=== PATIENT | female | born 1985 | race Caucasian/White ===

== ENCOUNTER 2018-01-16 18:36 | Emergency (ER) | payer OTHER ==
[~2018-01-16] VITALS: Ht 162.6 cm; Wt 97.5 kg
[~2018-01-16 18:36] MED LIST: PREDNISONE 10 M10 MG PO; REGLAN 10 MG TA10 MG PO; TRAZODONE HCL100 MG PO
[2018-01-16 19:24] LABS: INFLUENZA A ANTIGEN None Detected (None Detect); INFLUENZA B ANTIGEN None Detected (None Detect)
[2018-01-16] MEDS ORDERED: AMOXICILLIN875 MG PO (19:37)
[2018-01-16] MEDS ORDERED: PROAIR HFA8.5 GM INH (19:39)
[2018-01-16 19:49] VITALS: BP 112/61
== END 2018-01-16 19:51 | disposition home or self-care (01) ==
LOC: M.ERS 18:36
PROVIDERS: Nurse Practitioner Family
DX: H66.92 Otitis media, unspecified, left ear (principal)

== ENCOUNTER 2018-05-31 14:49 | Emergency (ER) | payer OTHER ==
[~2018-05-31] VITALS: Ht 162.6 cm; Wt 108.9 kg
[~2018-05-31 14:49] MED LIST changes: +AMOXICILLIN875 MG PO; +PROAIR HFA8.5 GM INH
[2018-05-31 15:38] LABS: ABSOLUTE EOSINOPHILS 0.2 thou/uL (0.0-0.7); ABSOLUTE LYMPHOCYTES 1.8 thou/uL (0.8-5.3); ABSOLUTE MONOCYTES 0.5 thou/uL (0.0-1.2); ABSOLUTE NEUTROPHILS 4.1 thou/uL (1.6-8.1); BASOPHILS 0.5 %; EOSINOPHILS 3.3 %; HEMATOCRIT 41.9 % (37.0-47.0); HEMOGLOBIN 14.7 gm/dL (12.0-15.0); LYMPHOCYTES 26.8 %; MCH 31.7 pg (26.0-34.0); MCHC 35.1 g/dL (28.0-37.0); MCV 90.3 fL (80.0-100.0); MONOCYTES 7.1 %; MPV 8.5 fl. (7.2-11.1); NUCLEATED RBCS 0 /100WBC; PLATELET COUNT* 205 thou/uL (150-400); POLYS 62.3 %; RBC 4.64 mil/uL (4.20-5.00); RDW-CV 12.7 % (10.5-14.5); WBC 6.6 thou/uL (4.0-11.0)
[2018-05-31 15:45] LABS: CALCIUM 8.6 mg/dL (8.5-10.1); CREATININE 0.6 mg/dL (0.6-1.3); POTASSIUM 4.2 mmol/L (3.5-5.1)
[2018-05-31 15:49] LABS: ALBUMIN 3.4 g/dL (3.4-5.0); TOTAL BILIRUBIN 0.5 mg/dL (<0.1-1.0); TOTAL PROTEIN 7.3 g/dL (6.4-8.2)
[2018-05-31 16:37] LABS: URINE BILIRUBIN NEGATIVE (Negative); URINE BLOOD NEGATIVE (Negative); URINE CLARITY CLEAR; URINE COLOR YELLOW; URINE GLUCOSE-RANDOM 2+ (Negative); URINE KETONES NEGATIVE (Negative); URINE LEUKOCYTES-REFLEX NEGATIVE (Negative); URINE NITRITE-REFLEX NEGATIVE (Negative); URINE PROTEIN NEGATIVE (Negative); URINE UROBILINOGEN 0.2 E.U./dl (0.2-1.0)
[2018-05-31] MEDS ORDERED: CITRATE OF MAG296 ML PO (17:41)
[2018-05-31] MEDS ORDERED: METFORMIN HCL500 MG PO ×2 (17:49→17:50)
[2018-05-31 17:54] VITALS: BP 126/85
== END 2018-05-31 17:55 | disposition home or self-care (01) ==
LOC: M.ERS 14:49
PROVIDERS: Physician Assistant
DX: K76.0 Fatty (change of) liver, not elsewhere classified (principal); R73.9 Hyperglycemia, unspecified

== ENCOUNTER 2020-04-23 18:40 | Emergency (ER) | payer OTHER ==
[~2020-04-23] VITALS: Ht 162.6 cm; Wt 99.8 kg
[~2020-04-23 18:40] MED LIST changes: +CITRATE OF MAG296 ML PO; +METFORMIN HCL500 MG PO; +NORVASC5 MG PO
[2020-04-23] MEDS ORDERED: NORCO 5-325 TA1 EAC1 PO (19:13)
[2020-04-23] MEDS ORDERED: DOXYCYCLINE 10100 MG PO (19:13)
[2020-04-23 19:43] VITALS: BP 155/75
== END 2020-04-23 19:46 | disposition home or self-care (01) ==
LOC: M.ERS 18:40
DX: N76.4 Abscess of vulva (principal); E11.9 Type 2 diabetes mellitus without complications; F17.210 Nicotine dependence, cigarettes, uncomplicated; Z98.51 Tubal ligation status

== ENCOUNTER 2020-12-22 23:23 | Emergency (ER) | payer OTHER ==
[~2020-12-22] VITALS: Ht 162.6 cm; Wt 111.1 kg
[~2020-12-22 23:23] MED LIST changes: +DOXYCYCLINE 10100 MG PO; +NORCO 5-325 TA1 EAC1 PO
[2020-12-22] MEDS ORDERED: HUMULIN N100 UNIT/1 ×2 (23:40)
[2020-12-22] MEDS ORDERED: INSULIN LI100 UNIT/1 (23:41)
[2020-12-22] MEDS ORDERED: HUMALOG100 UNIT/1 SUBQ (23:42)
[2020-12-23 00:15] LABS: URINE BILIRUBIN NEGATIVE (Negative); URINE BLOOD NEGATIVE (Negative); URINE CLARITY CLEAR; URINE COLOR YELLOW; URINE GLUCOSE-RANDOM 3+ (Negative); URINE KETONES 2+ (Negative); URINE LEUKOCYTES-REFLEX NEGATIVE (Negative); URINE NITRITE-REFLEX NEGATIVE (Negative); URINE PROTEIN NEGATIVE (Negative); URINE SPECIFIC GRAVITY >= 1.030 (1.005-1.030); URINE UROBILINOGEN 0.2 E.U./dl (0.2-1.0)
[2020-12-23 00:40] VITALS: BP 127/80
== END 2020-12-23 00:42 | disposition home or self-care (01) ==
LOC: M.ERS 23:23
PROVIDERS: Personal Emergency Response Attendant
DX: O24.414 Gestational diabetes mellitus in pregnancy, insulin controlled (principal); Z79.4 Long term (current) use of insulin; Z3A.28 28 weeks gestation of pregnancy

== ENCOUNTER 2021-04-23 20:39 | Emergency (ER) | payer OTHER ==
[~2021-04-23] VITALS: Ht 162.6 cm; Wt 108.9 kg
[~2021-04-23 20:39] MED LIST changes: +HUMALOG100 UNIT/1 SUBQ; +HUMULIN N100 UNIT/1; +INSULIN LI100 UNIT/1
[2021-04-23] MEDS ORDERED: IBUPROFEN 800800 M1 PO (21:04)
[2021-04-23] MEDS ORDERED: BACTRIM DS TAB1 EACH PO (21:04)
[2021-04-23] MEDS ORDERED: NORCO5 PO (21:04)
[2021-04-23] MEDS ORDERED: CEPHALEXIN500 MG PO (21:04)
[2021-04-23 21:13] VITALS: BP 145/96
== END 2021-04-23 21:13 | disposition home or self-care (01) ==
LOC: M.ERS 20:39
DX: L03.032 Cellulitis of left toe (principal); E11.9 Type 2 diabetes mellitus without complications; I10 Essential (primary) hypertension; Z98.51 Tubal ligation status

== ENCOUNTER 2021-06-11 20:01 | Emergency (ER) | payer OTHER ==
[~2021-06-11] VITALS: Ht 162.6 cm; Wt 106.1 kg
[~2021-06-11 20:01] MED LIST changes: +BACTRIM DS TAB1 EACH PO; +CEPHALEXIN500 MG PO; +IBUPROFEN 800800 M1 PO; +NORCO5 PO
[2021-06-11] MEDS ORDERED: GABAPENTIN100 MG PO (20:19)
[2021-06-11] MEDS ORDERED: EZALLOR SPRINKLE5 MG PO (20:20)
[2021-06-11] MEDS ORDERED: LISINOPRIL5 MG PO (20:21)
[2021-06-11] MEDS ORDERED: [UNRECOGNIZED DRUG - OTHER] RECTAL (20:21)
[2021-06-11] MEDS ORDERED: OMEPRAZOLE40 MG PO (20:22)
[2021-06-11] MEDS ORDERED: RYBELSUS7 MG PO (20:22)
[2021-06-11 22:44] LABS: ABSOLUTE EOSINOPHILS 0.2 thou/uL (0.0-0.7); ABSOLUTE LYMPHOCYTES 2.4 thou/uL (0.8-5.3); ABSOLUTE MONOCYTES 0.4 thou/uL (0.0-1.2); ABSOLUTE NEUTROPHILS 3.7 thou/uL (1.6-8.1); BASOPHILS 0.6 %; EOSINOPHILS 3.1 %; HEMATOCRIT 39.6 % (37.0-47.0); HEMOGLOBIN 13.9 gm/dL (12.0-15.0); LYMPHOCYTES 35.5 %; MCH 30.1 pg (26.0-34.0); MCHC 35.2 g/dL (28.0-37.0); MCV 85.5 fL (80.0-100.0); MONOCYTES 6.3 %; MPV 8.6 fl. (7.2-11.1); NUCLEATED RBCS 0 /100WBC; PLATELET COUNT* 206 thou/uL (150-400); POLYS 54.5 %; RBC 4.64 mil/uL (4.20-5.00); RDW-CV 13.9 % (10.5-14.5); WBC 6.8 thou/uL (4.0-11.0)
[2021-06-11 22:48] LABS: CALCIUM 8.5 mg/dL (8.5-10.1); CREATININE 0.6 mg/dL (0.6-1.3); POTASSIUM 3.8 mmol/L (3.5-5.1)
[2021-06-11 22:50] LABS: URINE BILIRUBIN NEGATIVE (Negative); URINE BLOOD NEGATIVE (Negative); URINE CLARITY CLEAR; URINE COLOR YELLOW; URINE GLUCOSE-RANDOM 2+ (Negative); URINE KETONES NEGATIVE (Negative); URINE LEUKOCYTES-REFLEX NEGATIVE (Negative); URINE NITRITE-REFLEX NEGATIVE (Negative); URINE PROTEIN NEGATIVE (Negative); URINE SPECIFIC GRAVITY >= 1.030 (1.005-1.030); URINE UROBILINOGEN 0.2 E.U./dl (0.2-1.0)
[2021-06-11 22:52] LABS: ALBUMIN 3.6 g/dL (3.4-5.0); TOTAL BILIRUBIN 0.4 mg/dL (<0.1-1.0); TOTAL PROTEIN 7.7 g/dL (6.4-8.2)
[2021-06-11] MEDS ORDERED: ZOFRAN ODT4 MG PO (23:43)
[2021-06-11 23:56] VITALS: BP 131/92
--- NOTE | 2021-06-12 16:27 | EKG ---
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1985 Requested By: Dayna Son Order Number: [id number] Leo MD: Jacques Rick Measurements Intervals [place] Rate: 81 P: 8 ID: [id number] QRS: 10 QRSD: 104 T: 6 QT: 381 QTc: 443 Interpretive Statements Sinus rhythm Borderline repolarization abnormality Baseline wander in lead(s) II,III,aVR,aVL,aVF,V1,V2,V3,V4,V5,V6 Compared to ECG 01/19/2019 18:18:29 Myocardial infarct finding no longer present Electronically Signed On 06-12-2021 16:27:31 CDT by Jacques Rick [email or web address] <ELECTRONICALLY SIGNED> By: Jacques Rick MD, [facility] 06/12/21 1627 99 99 Jacques Rick MD, [facility] /EPI
== END 2021-06-11 23:56 | disposition home or self-care (01) ==
LOC: M.ERS 20:01
PROVIDERS: Emergency Medicine
DX: F41.9 Anxiety disorder, unspecified (principal); F43.9 Reaction to severe stress, unspecified; R79.89 Other specified abnormal findings of blood chemistry; E11.9 Type 2 diabetes mellitus without complications; I10 Essential (primary) hypertension; E78.5 Hyperlipidemia, unspecified; Z79.899 Other long term (current) drug therapy; Z88.2 Allergy status to sulfonamides